=== PATIENT | female | born 1995 | race Caucasian/White ===

== ENCOUNTER 2020-05-17 09:17 | Emergency (ER) | payer SELFPAY ==
[2020-05-17 09:25] VITALS: BP 115/67; PULSE 65; RESP 18; TEMP 36.3; O2SAT 97
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
== END 2020-05-17 10:09 | disposition home or self-care (01) ==
LOC: ANHED 09:41
PROVIDERS: Emergency Provider Emergency Medicine
DX: S46.912A Strain of unspecified muscle, fascia and tendon at shoulder and upper arm level, left arm, initial encounter (principal); X58.XXXA Exposure to other specified factors, initial encounter
CPT/HCPCS: 99282

== ENCOUNTER 2020-07-20 07:57 | Emergency (ER) | payer OTHER, SELFPAY ==
--- NOTE | ~2020-07-20 | XR_ITS ---
EXAMINATION: XR chest 1V portable DATE: 07/20/2020 08:52 INDICATION: Cough. Congestion. Sinus drainage. TECHNIQUE: A single frontal view of the chest was obtained. COMPARISON: None. FINDINGS: The chest demonstrates clear lungs without pneumonia, pleural effusion, or pneumothorax. Th e heart size is normal. IMPRESSION: 1. No acute cardiopulmonary disease. Reviewed, dictated and finalized at location B.
[2020-07-20 08:02] VITALS: BP 120/68; PULSE 68; RESP 16; TEMP 36.3; O2SAT 100
--- NOTE | 2020-07-20 08:31 | ED.URI ---
HPI - URI/Sore Throat General Chief Complaint: Upper Respiratory Infection Stated Complaint: cough, nasal congestion Time Seen by Provider: 07/20/20 08:26 History of Present Illness HPI Narrative: URI symptoms for the past week. This includes cough, nasal and chest congestion, fatigue, sinus pressure. No fever, SOB. She also reports frequent nausea. No vomiting. She tried multiple OTC medications without improvement. Additionally she has had occasional abdominal cramps. She has had irregular periods since starting her current control. Related Data Allergies Allergy/AdvReac Type Severity Reaction Status Date / Time No Known Allergies Allergy Verified 07/20/20 08:05 Review of Systems Review of Systems: All systems reviewed & are unremarkable except as noted in HPI and below Constitutional: Constitutional: Reports as per HPI Eyes: Eyes: Reports no additional eye complaints ENT: Reports as per HPI Cardiovascular: Cardiovascular: Denies chest pain Respiratory: Respiratory: Reports as per HPI Gastrointestinal: Gastrointestinal: Reports as per HPI Genitourinary: Genitourinary: Denies hematuria and Denies dysuria Musculoskeletal: Musculoskeletal: Denies back pain Neurologic: Reports system reviewed and no additional complaints, except as documented Endocrine: Endocrine: Reports no additional endocrine complaints Hematologic/Lymphatic: Hematologic/Lymphatic: Reports no additional hematologic/lymphatic complaints [facility] Social History Social History (Updated 07/20/20 @ 09:44 by Trenton Edouard MD) Gender identity (if verbalized by the patient): Female Sexual Orientation (if Verbalized by the Patient): Straight or Heterosexual Exam Const: General: healthy appearing, no acute distress and alert Orientation/consciousness: patient oriented x3 HENMT: Head: normal to inspection Neck: Neck: normal visual inspection and no lymphadenopathy Chest: Chest palpation & inspection: no tenderness Resp: Effort & Inspection: normal respiratory effort Auscultation: clear to auscultation bilaterally, no rales, no rhonchi and no wheezes Cardio: Jugular venous distension: no JVD Rate: regular rate Rhythm: regular rhythm Heart sounds: no murmurs GI: Inspection: non-distended GI Palp: Yes Soft to palpation and No Tenderness to palpation present (GI) Skin: General skin exam: normal color Neuro: General: patient oriented x3 and moves all extremities Speech: normal speech Extrem: General: no edema Psych: Appearance: well kempt Affect: normal affect Course Vital Signs Vital signs: Vital Signs Temperature 36.3 C L 05/13/21 08:02 Pulse Rate 68 07/20/20 08:02 Respiratory Rate 16 07/20/20 08:02 Blood Pressure 120/68 07/20/20 08:02 Pulse Oximetry 100 07/20/20 08:02 Temperature 36.3 C L 07/20/20 08:02 Pulse Rate 70 07/20/20 10:40 Respiratory Rate 16 07/20/20 10:40 Blood Pressure 120/78 07/20/20 10:40 Pulse Oximetry 99 07/20/20 10:40 MDM - URI/Sore Throat Differential Diagnosis Differential diagnosis: Likely upper respiratory infection, sinusitis, bronchitis and other (allergies) Medical Records Attestation: I reviewed the patient's medical records. Lab Data Attestation: I reviewed the patient's lab results. Result diagrams: 07/20/20 08:43 07/20/20 08:43 Labs: Lab Results 07/20/20 07/20/20 07/20/20 Range/Units 08:43 08:43 08:43 WBC 4.8 (4.5-10.0) K/mm3 RBC 4.25 (4.2-5.4) M/mm3 Hgb 12.3 (12.0-15.0) g/dL Hct 37.1 (37.0-47.0) % MCV 87.3 (80-100) fl MCH 28.9 (26-34) pg MCHC 33.2 (32-36) g/dl RDW 12.2 (11.5-14.5) % Plt Count 262 (150-375) k/mm3 MPV 9.1 (7.4-10.4) fl Immature Gran % (Auto) 0.2 (0-0.5) % Neut % (Auto) 49.4 (45.5-73.1) % Lymph % (Auto) 39.3 (18.3-44.2) % Shannon % (Auto) 7.6 (2.6-8.5) % Eos % (Auto) 2.9 (0-4.4) % Baso % (Auto) 0.6 (0.2-1.
[2020-07-20 08:52] LABS: Basophils Percent Auto 0.6 % (0.2-1.2); Eosinophils Absolute Auto 0.1 K/mm3 (0-0.3); Eosinophils Percent Auto 2.9 % (0-4.4); Hematocrit 37.1 % (37.0-47.0); Hemoglobin 12.3 g/dL (12.0-15.0); Immature Granulocyte Absolute 0.01 K/mm3 (0.00-0.031); Immature Granulocyte Percent A 0.2 % (0-0.5); Lymphocytes Percent Auto 39.3 % (18.3-44.2); Mean Corpuscular HGB Conc 33.2 g/dl (32-36); Mean Corpuscular Hemoglobin 28.9 pg (26-34); Mean Corpuscular Volume 87.3 fl (80-100); Mean Platelet Volume 9.1 fl (7.4-10.4); Monocytes Absolute Auto 0.4 K/mm3 (0.1-0.6); Monocytes Percent Auto 7.6 % (2.6-8.5); Neutrophils Absolute Auto 2.4 K/mm3 (1.3-6.7); Neutrophils Percent Auto 49.4 % (45.5-73.1); Platelet Count Result 262 k/mm3 (150-375); Red Blood Count 4.25 M/mm3 (4.2-5.4); Red Cell Distribution Width 12.2 % (11.5-14.5); White Blood Count 4.8 K/mm3 (4.5-10.0)
[2020-07-20 08:53] LABS: Add Urine Microscopic? NO; Appearance Urine Clear (Clear); Bilirubin Urine Negative (Negative); Blood Urine Negative (Negative); Color Urine Straw (Yellow); Glucose Urine UA Negative (Negative); Ketones Urine Negative (Negative); Leukocyte Esterase Ur Negative LEU/UL (Negative); Nitrate Urine Negative (Negative); Protein Urine Negative (Negative); Specific Grav Ur 1.005 (1.001-1.035); Urobilinogen Urine Negative mg/dL (<2.0)
[2020-07-20 09:02] LABS: Lipase 69 U/L (23-300)
[2020-07-20 09:03] LABS: Alanine Aminotransferase 87 U/L (4-35); Albumin Level 4.4 g/dL (3.5-5.1); Alkaline Phosphatase 59 U/L (38-126); Anion Gap 5 mmol/L (8-16); Aspartate Amino Transferase 64 U/L (14-36); Bilirubin,Total 0.2 mg/dL (0.2-1.3); Blood Urea Nitrogen 11 mg/dL (7-17); Calcium 9.7 mg/dL (8.4-10.2); Carbon Dioxide 31 mmol/L (22-30); Chloride 104 mmol/L (98-107); Estimated CRCL calculation 86 ml/min; Estimated Glomerular Filt Rate > 60; Glucose 87 mg/dL (65-105); Potassium 4.2 mmol/L (3.4-5.0); Sodium 140 mmol/L (137-145)
[2020-07-20] MEDS: LORATADINE/PSEUDOEPHEDRINE (*CRX) 10/240 MG TABLET ER 24 HR 1 TAB PO (09:29)
[2020-07-20] MEDS: BENZONATATE 100 MG CAPSULE 200 MG PO (09:29)
[2020-07-20 10:40] VITALS: BP 120/78; PULSE 70; RESP 16; O2SAT 99
[2020-07-20 19:24] LABS: SARS-CoV-2 RNA PCR Negative
== END 2020-07-20 10:40 | disposition home or self-care (01) ==
PROVIDERS: Emergency Provider Emergency Medicine
DX: J06.9 Acute upper respiratory infection, unspecified (principal); Z20.822 Contact with and (suspected) exposure to COVID-19
CPT/HCPCS: 36415; 71045; 80053; 81003; 81025; 83690; 85025; 99283; A9270; C9803; U0003; U0005

== ENCOUNTER 2020-12-06 09:33 | Emergency (ER) | payer OTHER, SELFPAY ==
[2020-12-06 09:45] VITALS: BP 93/59; PULSE 62; RESP 16; TEMP 36.9; O2SAT 100
--- NOTE | 2020-12-06 11:13 | ED.GENADULT ---
HPI - General Adult General Chief complaint: Nausea/Vomiting/Diarrhea Stated complaint: vomiting/dizziness Source: patient Mode of arrival: ambulatory Limitations: no limitations History of Present Illness HPI narrative: Patient is a 25-year-old female who presents to the [facility] via POV for evaluation of intermittent vomiting x2 weeks. Additionally, she reports decreased appetite, nausea, and dizziness. Denies taking OTC meds for symptoms. She states her vomitus contents include undigested food and clear liquids. Nothing improves symptoms. Symptoms are worse in the morning. Patient denies . She states she was last sexually active on May 03, 2020. She also reports a history of depression and anxiety and is not currently medicated for these illnesses. She has not follow-up with her primary care provider since she does not have one. She is requesting documentation for work absence since she left work this morning after vomiting. Related Data Allergies Allergy/AdvReac Type Severity Reaction Status Date / Time No Known Allergies Allergy Verified 12/06/20 10:49 Review of Systems Review of Systems: Denies past abdominal medical history. Pertinent negatives fever, chills, sweats, malaise, poor p.o. intake, change in appetite, recent weight loss, lymphadenopathy, headache, sore throat, LOC, urinary sxs, back/flank pain, extremity paresthesias, blood in stool, diarrhea, constipation, belching, bloating, dry mouth, heartburn, jaundice, vomiting blood, suicidal ideation, homicidal ideation. [facility] Social History Social History (Updated 07/20/20 @ 09:44 by Trenton Edouard MD) Gender identity (if verbalized by the patient): Female Sexual Orientation (if Verbalized by the Patient): Straight or Heterosexual Exam Narrative: GENERAL: Well-appearing, well-nourished, and in no acute distress. HEAD: Normocephalic, atraumatic. No sinus tenderness or facial swelling appreciated. EYES: PERRLA and EOMI. No evidence of erythema, swelling, or drainage. ENT: Mucous membranes moist and pink. Uvula is midline without erythema and swelling. No evidence of petechial rash, cobblestoning, lesions, ulcers, erythema, swelling, exudates, peritonsillar abscess, tenting, or drooling. Breath odor and voice normal. NECK: Supple. No Lymphadenopathy or nuchal rigidity appreciated. CHEST: Bilateral lung villarreal are clear to auscultation. No respiratory distress. No evidence of cough or pleuritic cp upon examination. HEART: Regular rate and rhythm. No murmur, gallop, or rub heard. ABDOMEN: Soft, nontender, nondistended, normal active bowel sounds in all quadrants. No guarding. No rebound tenderness. No pulsatile or palpable abdominal mass(es). No CVAT EXTREMITIES: Normal range of motion. No edema. SKIN: Warm, dry, no rash. Excellent skin turgor. NEURO: No focal deficits. Alert and oriented x3. Positive Romberg's test. Patient has a subtle sway to the left and right. SPECIAL OBSERVATIONS: Course Course Emergency Course: Vertigo versus anxiety/depression symptoms Vital Signs Vital signs: Vital Signs Temperature 98.4 F 12/06/20 09:45 Pulse Rate 62 12/06/20 09:45 Respiratory Rate 16 12/06/20 09:45 Blood Pressure 93/59 L 12/06/20 09:45 Pulse Oximetry 100 12/06/20 09:45 Temperature 98.4 F 12/06/20 09:45 Pulse Rate 62 12/06/20 09:45 Respiratory Rate 16 12/06/20 09:45 Blood Pressure 93/59 L 12/06/20 09:45 Pulse Oximetry 100 12/06/20 09:45 Reviewed Medical Decision Making Vital Signs Vital Signs: Vital Signs Temperature 98.4 F 12/06/20 09:45 Pulse Rate 62 12/06/20 09:45 Respiratory Rate 16 12/06/20 09:45 Blood Pressure 93/59 L 12/06/20 09:45 Pulse Oximetry 100 12/06/20 09:45 Temperature 98.4 F 12/06/20 09:45 Pulse Rate 62 12/06/20 09:45 Respiratory Rate 16 12/06/20 09:45 Blood Pressure 93/59 L 12/06/20 09:45 Pulse Oximetry 100 12/06/20 09:45 Cri
== END 2020-12-06 11:40 | disposition home or self-care (01) ==
PROVIDERS: Emergency Provider Nurse Practitioner Family
DX: R11.2 Nausea with vomiting, unspecified (principal)
CPT/HCPCS: 99213; G0463